=== PATIENT | male | born 1945 | race Caucasian/White ===

== ENCOUNTER 2019-09-22 12:48 | Emergency (ER) | payer SELFPAY ==
[~2019-09-22] VITALS: Ht 180.3 cm; Wt 87.1 kg
[2019-09-22 12:51] VITALS: BP 185/84; Ht 180.3 cm; Wt 87.1 kg
[2019-09-22 13:36] LABS: BASOPHIL % 0.6 % (0-2); PLATELET COUNT 182 x10^3mcL (130-400); RED CELL DISTRIBUTION WIDTH 13.9 % (11.5-14.5)
[2019-09-22 14:27] LABS: CALCIUM 7.8 mg/dL (8.5-10.1); CARBON DIOXIDE 25.9 mmol/L (21-32); CHLORIDE SERUM 107 mmol/L (98-107); CREATININE SERUM 1.2 mg/dL (0.7-1.3); GLUCOSE SERUM 128 mg/dL (74-106); POTASSIUM SERUM 3.5 mmol/L (3.5-5.1); SODIUM SERUM 143 mmol/L (136-145)
[2019-09-22 14:32] LABS: ALBUMIN 3.5 g/dL (3.4-5.0); ALKALINE PHOSPHATASE 68 U/L (46-116); ALT/SGPT 27 U/L (16-63); AST/SGOT 16 U/L (15-37); BILIRUBIN TOTAL 0.5 mg/dL (0.20-1.00); LIPASE 151 IU/L (73-393); TOTAL PROTEIN, SERUM 7.2 g/dL (6.4-8.2)
== END 2019-09-22 13:40 | disposition home or self-care (01) ==
LOC: ED 12:48
DX: K42.9 Umbilical hernia without obstruction or gangrene (principal); I10 Essential (primary) hypertension; Z98.890 Other specified postprocedural states; Z88.0 Allergy status to penicillin
CPT/HCPCS: 36415; J2270; J2405